=== PATIENT | female | born 1935 | race Caucasian/White ===

== ENCOUNTER 2022-09-15 13:29 | Emergency (ER) | payer MEDICARE, MEDICAID, SELFPAY ==
--- NOTE | 2022-09-15 13:31 | ECG_ITS ---
Measurements Intervals [place] Rate: 70 P: 48 VT: 261 QRS: -3 QRSD: 102 T: 79 QT: 416 QTc: 449 Interpretive Statements SINUS RHYTHM WITH FIRST DEGREE AV BLOCK ANTEROLATERAL ST ELEVATION MYOCARDIAL INFARCT- ACUTE BASELINE ARTIFACT- I, III ABNORMAL ECG NO PREVIOUS ECG AVAILABLE FOR COMPARISON Electronically Signed On 09-15-2022 13:41:51 CDT by Nader Curry D.O.
[2022-09-15 13:38] VITALS: BP 126/98; PULSE 69; RESP 33; TEMP 37.2; O2SAT 88
--- NOTE | 2022-09-15 13:42 | ED.CHESTPAIN ---
HPI - Chest Pain General Chief Complaint: Chest Pain Stated Complaint: cp Time Seen by Provider: 09/15/22 13:41 Source: patient, family and RN notes reviewed Mode of arrival: ambulatory Limitations: no limitations History of Present Illness HPI narrative: 87 years old white female came to the emergency room by private car with her daughter complaining of sudden onset of severe chest pain radiating to upper extremity bilaterally while sitting in a car. The pain started 8 to 10 minutes prior to arrival to the emergency room associated with diaphoresis, 10 out of 10. History of hypertension. Patient does not smoke or drink or uses drugs. MD complaint: chest discomfort Pertinent past history: other (Hypertension) Onset (ago): minute(s) (10) Timing of current episode: constant and still present Prior episodes: No Onset: during rest Pain location: substernal Pain radiation: right arm and left arm Severity: severe Pain scale (0-10): 10 Quality: crushing Relieving factors: nothing Exacerbating factors: other (Unknown) Context: other (Came to stay with her daughter 3 days ago) Associated symptoms: diaphoresis Treatment prior to arrival: none Risk Factors Coronary artery disease risk factors: hypertension Thoracic aortic dissection risk factors: none Pulmonary embolism risk factors: morbid obesity Related Data Allergies Allergy/AdvReac Type Severity Reaction Status Date / Time Penicillins Allergy Swelling Verified 09/15/22 13:48 Sulfa (Sulfonamide Allergy Swelling Verified 09/15/22 13:48 Antibiotics) Review of Systems Review of Systems: All systems reviewed & are unremarkable except as noted in HPI and below Exam Narrative: General appearance: Well-developed, well-nourished, ill appearing, in pain, obese Skin: Diaphoretic Head: Normocephalic, nontraumatic Eyes: Clear conjunctiva Neck: Supple, nontender Chest and respiratory: Airway patent, no respiratory distress, no accessory muscle use Heart: Regular rate/rhythm Abdomen: Soft, nontender, no organomegaly, quiet bowel sounds Vascular: Normal peripheral pulses, normal capillary refill. M Neurologic: Alert and oriented ?3, PSYCHOLOGICAL OPERATIONS SPECIALIST is normal as tested, no gross motor deficit Course Reevaluation(s) Reevaluation #1: Pain is gradually improving after starting STEMI protocol plus morphine 4 mg, Zofran 4 mg IV. 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 at [facility] who accepted patient transfer Date: 09/15/22 Vital Signs Vital signs: Vital Signs Temperature 37.2 C 09/15/22 13:38 Pulse Rate 69 09/15/22 13:38 Respiratory Rate 33 H 09/15/22 13:38 Blood Pressure 126/98 H 09/15/22 13:38 Pulse Oximetry 88 L 09/15/22 13:38 Oxygen Delivery Room Air 09/15/22 13:38 Temperature 37.2 C 09/15/22 13:38 Pulse Rate 73 09/15/22 13:46 Respiratory Rate 23 H 09/15/22 13:46 Blood Pressure 139/98 H 09/15/22 13:46 Pulse Oximetry 94 09/15/22 13:46 Oxygen Delivery Nasal Cannula 09/15/22 13:43 Oxygen Flow Rate 2 09/15/22 13:43 MDM - Chest Pain MDM Narrative Medical decision making narrative: Patient is 87 years old white female, came to the emergency room with chest pain, EKG on arrival showed STEMI. STEMI protocol started, the cardiac Hand Ii Thermal Cutter have a patient right now on the table and cannot manage another patient at this time and requested to transfer patient to another facility. Cardiac cath team came to the emergency room and were not able to give me a definite time how long the cardiac cath will be not available. I was not able to talk to Dr. Arriaza/the invasive
[2022-09-15 13:43] VITALS: O2SAT 97
[2022-09-15 13:46] VITALS: BP 139/98; PULSE 73; RESP 23; O2SAT 94
[2022-09-15 13:52] LABS: Basophils Absolute Auto 0.1 K/mm3 (0.0-0.1); Basophils Percent Auto 0.4 % (0.2-1.2); Eosinophils Absolute Auto 0.3 K/mm3 (0-0.3); Eosinophils Percent Auto 2.4 % (0-4.4); Hematocrit 44.1 % (37.0-47.0); Hemoglobin 14.3 g/dL (12.0-15.0); Immature Granulocyte Absolute 0.05 K/mm3 (0.00-0.031); Immature Granulocyte Percent A 0.4 % (0-0.5); Lymphocytes Absolute Auto 6.21 K/mm3 (0.9-3.2); Lymphocytes Percent Auto 50.1 % (18.3-44.2); Mean Corpuscular HGB Conc 32.4 g/dl (32-36); Mean Corpuscular Hemoglobin 31.8 pg (26-34); Mean Corpuscular Volume 98.2 fl (80-100); Mean Platelet Volume 10.6 fl (7.4-10.4); Monocytes Absolute Auto 0.8 K/mm3 (0.1-0.6); Monocytes Percent Auto 6.8 % (2.6-8.5); Neutrophils Percent Auto 39.9 % (45.5-73.1); Platelet Count Result 223 k/mm3 (150-375); Red Blood Count 4.49 M/mm3 (4.2-5.4); Red Cell Distribution Width 13.2 % (11.5-14.5); White Blood Count 12.4 K/mm3 (4.5-10.0)
--- NOTE | 2022-09-15 14:01 | PC.NURSE ---
Addendum entered by Maru Graham RN 09/15/22 14:16: Witnessed per Amira Montanez RN. Original Note: patient given 324 mg asa at 1353, 5000units IV push heparin, 4 mg IVP zofran, and 4mg IVP morphine per Verbal order per MD Zee.
[2022-09-15 14:03] LABS: INR 1.1
[2022-09-15 14:04] LABS: Alanine Aminotransferase 27 U/L (6-35); Albumin Level 3.5 g/dL (3.5-5.1); Alkaline Phosphatase 156 U/L (38-126); Anion Gap 6 mmol/L (8-16); Aspartate Amino Transferase 31 U/L (14-36); Bilirubin,Total 0.6 mg/dL (0.2-1.3); Blood Urea Nitrogen 18 mg/dL (7-17); Calcium 8.7 mg/dL (8.4-10.2); Carbon Dioxide 28 mmol/L (22-30); Chloride 104 mmol/L (98-107); Estimated CRCL calculation 40 ml/min; Estimated Glomerular Filt Rate 52; Glucose 132 mg/dL (65-110); Lipase 23 U/L (23-300); Partial Thromboplastin Time 26.3 SECONDS (22.3-36.8); Potassium 3.9 mmol/L (3.4-5.0); Sodium 138 mmol/L (137-145)
--- NOTE | 2022-09-15 14:14 | PC.NURSE ---
Report called to [facility] and given to Dewey SAAVEDRA. All questions answered at time of report.
[2022-09-15 14:15] LABS: Troponin I 0.018 ng/mL (0.000-0.034)
== END 2022-09-15 14:10 | disposition short-term general hospital (02) ==
PROVIDERS: Emergency Provider Emergency Medicine
DX: I21.3 ST elevation (STEMI) myocardial infarction of unspecified site (principal); I10 Essential (primary) hypertension; I44.0 Atrioventricular block, first degree
CPT/HCPCS: 36415; 80053; 83690; 84484; 85025; 85610; 85730; 93005; 99285; A9270; J1644; J2270; J2405